=== PATIENT | female | born 1965 | race Two or more races ===

== ENCOUNTER 2025-04-27 10:21 | Emergency (ER) | payer OTHER ==
[~2025-04-27] VITALS: Ht 170.2 cm; Wt 68.0 kg
[2025-04-27] MEDS ORDERED: LAMISIL125 ML TP (10:28)
== END 2025-04-27 11:13 | disposition home or self-care (01) ==
LOC: ER 10:21
DX: R00.2 Palpitations (principal); F41.9 Anxiety disorder, unspecified; F41.0 Panic disorder [episodic paroxysmal anxiety]